=== PATIENT | female | born 1965 | race African-American/Black ===

== ENCOUNTER 2022-09-17 07:27 | Emergency (ER) | payer MEDICAID ==
[~2022-09-17] VITALS: Ht 162.6 cm; Wt 73.0 kg
[2022-09-17 07:42] VITALS: TEMP 97.8; O2SAT 97
[2022-09-17 09:15] VITALS: BP 219/108; PULSE 77; RESP 18
[2022-09-17] MEDS ORDERED: TETANUS, DIPHTHERIA, PERTUSSIS VAC/PF 0.5ML (>10YR OLD) IM ONE (09:15)
[2022-09-17] MEDS ORDERED: KETOROLAC 30MG/ML VIAL IM ONE (09:15)
[2022-09-17] MEDS ORDERED: BACITRACIN ZINC OINT UDPKT TOP ONE (09:15)
[2022-09-17] MEDS ORDERED: LIDOCAINE HCL/PF 1% 10 MG/ML 5ML VIAL INFIL ONE (09:15)
[2022-09-17] MEDS ORDERED: ACET-2708 MT (10:29)
[2022-09-17] MEDS ORDERED: AMLODIPINE 10MG TABLET PO ONE (10:45)
== END 2022-09-17 11:01 | disposition home or self-care (01) ==
LOC: ER 07:33
DX: S81.811A Laceration without foreign body, right lower leg, initial encounter (principal); I10 Essential (primary) hypertension; V49.9XXA Car occupant (driver) (passenger) injured in unspecified traffic accident, initial encounter; Y93.89 Activity, other specified; Y92.89 Other specified places as the place of occurrence of the external cause; Y99.8 Other external cause status
CPT/HCPCS: 90715; 90471; 96372; 99283; J1885; J3490; Z7610 ×2

== ENCOUNTER 2022-09-18 17:42 | Emergency (ER) | payer MEDICAID ==
[~2022-09-18] VITALS: Ht 165.1 cm; Wt 88.0 kg
[~2022-09-18 17:42] MED LIST: ACET-2708 MT
[2022-09-18 17:53] VITALS: BP 165/76; PULSE 82; RESP 18; TEMP 98.8; O2SAT 100
== END 2022-09-18 19:55 | disposition left against medical advice (07) ==
LOC: ER 17:47
DX: Z53.21 Procedure and treatment not carried out due to patient leaving prior to being seen by health care provider (principal)
CPT/HCPCS: 99281

== ENCOUNTER 2022-09-18 21:46 | Emergency (ER) | payer MEDICAID ==
[~2022-09-18] VITALS: Ht 162.6 cm; Wt 73.0 kg
[2022-09-18 22:39] VITALS: BP 191/98; PULSE 86; RESP 18; TEMP 98; O2SAT 97
== END 2022-09-18 23:16 | disposition left against medical advice (07) ==
LOC: ER 21:46
DX: R51.9 Headache, unspecified (principal); Z53.21 Procedure and treatment not carried out due to patient leaving prior to being seen by health care provider
CPT/HCPCS: 99281

== ENCOUNTER 2023-09-09 09:32 | Emergency (ER) | payer BC, MEDICAID ==
[~2023-09-09] VITALS: Ht 162.6 cm; Wt 82.0 kg
[2023-09-09 09:43] VITALS: O2SAT 99
[2023-09-09 10:14] LABS: BASOPHILS % 0.5 % (0.0-2.0); EOSINOPHILS % 2.4 % (0.0-5.0); HEMOGLOBIN. 12.6 g/dL (12.0-16.0); LYMPHOCYTES % 39.2 % (20.0-50.0); MEAN CORPUSCULAR HEMOGLOBIN 28.3 pg (28.0-32.0); MEAN CORPUSCULAR HGB CONC 33.2 g/dL (31.0-37.0); MEAN CORPUSCULAR VOLUME 85.2 fL (81.0-99.0); MEAN PLATELET VOLUME 8.1 fl (7.4-10.4); NEUTROPHILS % 48.9 % (40.0-76.0); PLATELET 338 x1000/uL (130-400); RED BLOOD CELL COUNT 4.46 mill/uL (4.2-5.4); RED CELL DISTRIBUTION WIDTH 13.8 % (11.6-14.6); WHITE BLOOD COUNT 4.6 x1000/uL (4.5-11.0)
[2023-09-09 10:21] LABS: CHLORIDE 105 mEq/L (98-107); SODIUM 141 mEq/L (136-145)
[2023-09-09 10:22] LABS: CARBON DIOXIDE 29 mEq/L (21-32)
[2023-09-09 10:23] LABS: CALCIUM 9.5 mg/dL (8.7-10.4)
[2023-09-09 10:24] LABS: PROTHROMBIN TIME 10.7 sec (9.6-11.0)
[2023-09-09 10:27] LABS: GLUCOSE 126 mg/dL (70-105)
[2023-09-09 10:28] LABS: UREA NITROGEN BLOOD 13 mg/dL (9-23)
[2023-09-09 10:40] LABS: POTASSIUM 2.8 mEq/L (3.5-5.1)
[2023-09-09] MEDS ORDERED: GUAI600T26 MT (11:38)
[2023-09-09] MEDS ORDERED: BENZ100C86 MT (11:38)
[2023-09-09] MEDS ORDERED: AMOX1TAB16 MT (11:38)
[2023-09-09] MEDS: POTASSIUM CHLORIDE 20MEQ TABLET SR PO ONE ×2 (11:54)
[2023-09-09 12:06] VITALS: BP 138/87; PULSE 90; RESP 16; TEMP 98.7
== END 2023-09-09 12:24 | disposition home or self-care (01) ==
LOC: ER 09:32
DX: R05.9 Cough, unspecified (principal); R09.81 Nasal congestion; E87.6 Hypokalemia; E78.00 Pure hypercholesterolemia, unspecified; I10 Essential (primary) hypertension; Z20.822 Contact with and (suspected) exposure to COVID-19
CPT/HCPCS: 36415; 71045; 80048; 85025; 87426; 87804; 99284